=== PATIENT | female | born 1930 | race African-American/Black ===

== ENCOUNTER 2019-12-22 12:25 | Emergency (ER) | payer OTHER ==
[2019-12-22 12:47] VITALS: BMI 19.9
--- NOTE | 2019-12-22 14:50 | PDOC ---
History of Present Illness - General Chief Complaint: Injury Stated Complaint: FALL/ LT. HAND INJURY Time Seen by Provider: 12/22/19 14:02 - History of Present Illness Initial Comments: 12/22/19 14:48 CHIEF COMPLAINT: fall HISTORY OF PRESENT ILLNESS: 89 yo F with hx of HTN and dementia presents to ED with pain to L wrist s/p fall. Family reports that they witnessed the patient walking with her walker and walked into a pothole which caused her to fall onto her L wrist and possibly hit the back of her head. Patient is not taking any blood thinners or anticoagulants but is taking baby aspirin. No recent travel or sick contacts. PAST MEDICAL HISTORY: Denies past medical history FAMILY HISTORY: Denies SOCIAL HISTORY: Denies tobacco, alcohol, illicit drug use. SURGICAL HISTORY: Denies ALLERGIES: No known drug allergies REVIEW OF SYSTEMS - per family, pt unreliable historian due to dementia General/Constitutional: Denies fever or chills. Denies weakness, weight change. HEENT: Denies change in vision. Denies ear pain or discharge. Denies sore throat. Cardiovascular: Denies chest pain or shortness of breath. Respiratory: Denies cough, wheezing, or hemoptysis. Gastrointestinal: Denies nausea, vomiting, diarrhea or constipation. Denies rectal bleeding. Genitourinary: Denies dysuria, frequency, or change in urination. Musculoskeletal: Pain and swelling to L wrist. Skin and breasts: Denies rash or easy bruising. Neurologic: Denies headache, vertigo, loss of consciousness, or loss of sensation. Psychiatric: Denies depression or anxiety. PHYSICAL EXAM General Appearance: Well-appearing, appropriately dressed. No apparent distress. HEENT: EOMI, PERRLA, normal ENT inspection, normal voice, TMs normal, pharynx normal. No conjunctival pallor. No photophobia, scleral icterus. Neck: Supple. Trachea midline. No tenderness, rigidity, carotid bruit, stridor , lymphadenopathy, or thyromegaly. Respiratory/Chest: Lungs CTAB. No shortness of breath, chest tenderness, respiratory distress, accessory muscle use. No crackles, rales, rhonchi, stridor , wheezing, dullness Cardiovascular: RRR. S1, S2. No JVD, murmur, bradycardia, tachycardia. Vascular Pulses: Dorsalis-Pedis (R): 2+, Dorsalis-Pedis (L): 2+ Gastrointestinal/Abdominal: Normal bowel sounds. Abdomen soft, non-distended. No tenderness or rebound tenderness. No organomegaly, pulsatile mass, guarding , hernia, hepatomegaly, splenomegaly. Lymphatic: No adenopathy, tenderness. Musculoskeletal/Extremities: Swelling, tenderness to L wrist with deformity. Neurovascularly intact, pulses 2+, cap refill normal. Pelvis Stable. No CVA tenderness. No tenderness to other extremities, pedal edema, swelling, erythema or deformity. Integumentary: Appropriate color, dry, warm. No cyanosis, erythema, jaundice or rash Neurologic: manager terminal II-XII intact. Fully oriented, alert. Appropriate mood/affect. Motor strength 5/5. No appreciable EOM palsy, facial droop or sensory deficit. Past History - Past Medical History Allergies/Adverse Reactions: Allergies Allergy/AdvReac Type Severity Reaction Status Date / Time No Known Allergies Allergy Verified 12/22/19 12:43 Home Medications: Ambulatory Orders Aspirin [Ecotrin] 81 mg PO DAILY 12/22/19 Lisinopril [Prinivil] 5 mg PO DAILY 12/22/19 Quetiapine Fumarate [Seroquel -] 25 mg PO BID 12/22/19 - Psycho Social/Smoking Cessation Hx Smoking History: Former smoker Have you smoked in the past 12 months: No Information on smoking cessation initiated: Yes Hx Alcohol Use: No Drug/Substance Use Hx: No *Physical Exam - Vital Signs Last Vital Signs Temp Pulse Resp BP Pulse Ox 97.3 F L 69 14 127/50 L 98 12/22/19 12:43 12/22/19 12:43 12/22/19 12:43 12/22/19 12:43 12/22/19 12:43 ED Treatment Course - RADIOLOGY Radiology Studies Ordered: Category Date Time Status HEAD CT WITHOUT CONTRAST [CT] Stat CT Scan 12/22/19 14:46 Ordered WRIST W/HAND-LEFT* [RAD] Stat Radiology 12/22/19 14:46 Ordered Medical Decision Making - Medical Decision Making 12/22/19 14:50 89 yo F with hx of HTN and dementia presents to ED with pain to L wrist s/p fall. -wrist XR -head CT 12/22/19 16:30 Patient has fracture of L wrist and is pending head CT. Patient signed out to oncoming ER provider HAYDEN Mcfarland at this time. HAYDEN Mcfarland is aware patient is pending splinting of wrist and currently awaiting CT. Discharge - Discharge Information Problems reviewed: Yes Clinical Impression/Diagnosis: Fracture of left distal radius Qualifiers: Encounter type: initial encounter Fracture type: closed Fracture morphology: other fracture Qualified Code(s): S52.592A - Other fractures of lower end of left radius, initial encounter for closed fracture Condition: Stable Disposition: HOME - Follow up/Referral Referrals: Efrain Null MD [Staff Physician] - 3 days (Follow up with orthopaedics within 1 week for repeat evaluation.) - Patient Discharge Instructions Patient Printed Discharge Instructions: DI for Distal Radius Fracture Additional Instructions: Ice and elevate the left wrist. Take Tylenol or ibuprofen for pain. Follow-up with orthopedics within 1 to 2 days for repeat evaluation. Do not remove the splint as this is stabilizing the fracture. - Post Discharge Activity
--- NOTE | 2019-12-22 17:24 | PDOC ---
*Physical Exam - Vital Signs Last Vital Signs Temp Pulse Resp BP Pulse Ox 97.3 F L 69 14 127/50 L 98 12/22/19 12:43 12/22/19 12:43 12/22/19 12:43 12/22/19 12:43 12/22/19 12:43 - Physical Exam General Appearance: Yes: Nourished, Appropriately Dressed Musculoskeletal: positive: Other (There is an obvious deformity to the left wrist. Brisk capillary refill distally. Sensation intact distally. Patient able to move all fingers freely. No tenderness to the left elbow.) Neurologic: positive: Alert, Normal Mood/Affect, Normal Response, Other ( Patient has dementia but is following commands appropriately.) ED Progress Note - Progress Note Progress Note: 12/22/19 17:20 The patient was endorsed to me for further continuation of care for evaluation of a left wrist injury and follow-up of the CT scan. Splint procedures: A sugartong splint was placed using a stockinette, 4" fiberglass cast material and 2 rolls of 4" CRISTIANO, 1 roll of 3" CRISTIANO. Medical Decision Making - Medical Decision Making 12/22/19 17:21 The patient and her family have been made aware that the CT scan is negative for acute pathology. She does have a left distal radius fracture with angulation appreciated. The wrist fracture was splinted in a sugar tong splint and the patient should follow-up with orthopedics. A referral for Ortho has been given to the patient today. Family and the patient understand and agree with this treatment and plan and the patient is stable for discharge. Discharge - Discharge Information Problems reviewed: Yes Clinical Impression/Diagnosis: Fracture of left distal radius Qualifiers: Encounter type: initial encounter Fracture type: closed Fracture morphology: other fracture Qualified Code(s): S52.592A - Other fractures of lower end of left radius, initial encounter for closed fracture Condition: Stable Disposition: HOME - Follow up/Referral Referrals: Efrain Null MD [Staff Physician] - 3 days (Follow up with orthopaedics within 1 week for repeat evaluation.) - Patient Discharge Instructions Patient Printed Discharge Instructions: DI for Distal Radius Fracture Additional Instructions: Ice and elevate the left wrist. Take Tylenol or ibuprofen for pain. Follow-up with orthopedics within 1 to 2 days for repeat evaluation. Do not remove the splint as this is stabilizing the fracture. - Post Discharge Activity
[2019-12-22 17:29] VITALS: BP 123/65; PULSE 63; TEMP 98.5
== END 2019-12-22 17:40 | disposition home or self-care (01) ==
LOC: JERFT 12:25 → JER 12:25
PROC: 2W3DX1Z Immobilization of Left Lower Arm using Splint (ICD-10-PCS; principal; 2019-12-22)
DX: S52.592A Other fractures of lower end of left radius, initial encounter for closed fracture (principal); W18.39XA Other fall on same level, initial encounter; Y93.89 Activity, other specified; Y92.89 Other specified places as the place of occurrence of the external cause; I10 Essential (primary) hypertension; F03.90 Unspecified dementia, unspecified severity, without behavioral disturbance, psychotic disturbance, mood disturbance, and anxiety; Z87.891 Personal history of nicotine dependence
CPT/HCPCS: 29126; 70450-TC; 73110-TC-LT-FY; 73130-TC-LT-FY; 99281-25